=== PATIENT | male | born 1990 | race Caucasian/White ===

== ENCOUNTER 2017-03-18 01:13 | Emergency (ER) | payer OTHER ==
[~2017-03-18 01:13] MED LIST: AMOX TR-K250 MG/5 M PO; AMOXICILLIN500 MG PO; AUGMENTIN875 MG PO; CHILDREN'S100 MG/59 PO; CHLORHEXIDINE473 ML MM; CLEOCIN300 MG PO; FLEXERIL10 MG PO; FLEXERIL5 MG PO; INDOCIN25 MG PO; NAPROSYN500 MG PO; NORCO 7.5/321 TABLET PO; OXYCODONE H5 MG/5 ML PO; PERIDEX1 ML MM; PREDNISONE20 MG PO; ULTRAM50 MG PO
[2017-03-18 01:44] VITALS: BP 128/95
== END 2017-03-18 01:47 ==
LOC: EME 01:13
PROC: 3E0234Z Introduction of Serum, Toxoid and Vaccine into Muscle, Percutaneous Approach (ICD-10-PCS; principal; 2017-03-18)
DX: S21.44 Puncture wound with foreign body of back wall of thorax with penetration into thoracic cavity (principal); S60.811A Abrasion of right wrist, initial encounter; Y35.093A Legal intervention involving other firearm discharge, suspect injured, initial encounter; F14.10 Cocaine abuse, uncomplicated
CPT/HCPCS: 99281; 99284